=== PATIENT | male | born 1985 | race Caucasian/White ===

== ENCOUNTER 2017-07-03 06:55 | Emergency (ER) | payer MEDICAID ==
[2017-07-03 07:06] VITALS: TEMP 98.2
--- NOTE | 2017-07-03 07:33 | ED PDOC ---
HPI: General Adult Time Seen by Provider: 07/03/17 07:20 Chief Complaint (Nursing): Headache Chief Complaint (Provider): Left sided neck pain History Per: Patient History/Exam Limitations: no limitations Onset/Duration Of Symptoms: Days (x6 weeks) Current Symptoms Are (Timing): Still Present Additional Complaint(s): Heather Servin is a 32 year old male presenting to the ED for an evaluation of left sided neck pain radiating to his left shoulder occurring for 6 weeks prior to arrival. The patient states his pain worsens when turning his head side to side. He denies any trauma, weakness, or paresthesia. PMD: TBD Past Medical History Reviewed: Historical Data, Nursing Documentation, Vital Signs Vital Signs: Last Vital Signs Temp 98.2 F 07/03/17 07:04 Pulse 88 07/03/17 07:48 Resp 18 07/03/17 07:04 BP 185/124 H 07/03/17 07:48 Pulse Ox 97 07/03/17 07:35 - Medical History PMH: HTN (not on meds) - Family History Family History: States: Hypertension - Social History Current smoker - smoking cessation education provided: No Ex-Smoker (has not smoked in the last 12 months): Yes Alcohol: Social Drugs: Denies - Home Medications Home Medications: Ambulatory Orders Medication Instructions Recorded Cephalexin [Keflex] 500 mg PO Q6 #28 cap 03/21/14 Prednisone 50 mg PO DAILY #6 tab 03/27/14 DiphenhydrAMINE [Benadryl] 50 mg PO Q4 PRN #30 cap 04/01/14 Prednisone 20 mg PO BID #10 tab 04/01/14 Cyclobenzaprine [Cyclobenzaprine 10 mg PO TID #10 tab 07/03/17 HCl] Naproxen [Naprosyn] 500 mg PO Q12H #20 tab 07/03/17 amLODIPine [Norvasc] 10 mg PO DAILY #30 tab 07/03/17 - Allergies Allergies/Adverse Reactions: Allergies Allergy/AdvReac Type Severity Reaction Status Date / Time No Known Allergies Allergy Verified 03/21/14 16:16 Review of Systems ROS Statement: Except As Marked, All Systems Reviewed And Found Negative Musculoskeletal: Positive for: Neck Pain (left sided), Shoulder Pain (left shoulder) Neurological: Negative for: Weakness, Other (no paresthesia) Physical Exam - Reviewed Nursing Documentation Reviewed: Yes Vital Signs Reviewed: Yes - Physical Exam Appears: Positive for: Non-toxic, No Acute Distress Head Exam: Positive for: ATRAUMATIC, NORMOCEPHALIC Skin: Positive for: Normal Color, Warm, Dry Eye Exam: Positive for: Normal appearance, EOMI ENT: Positive for: Normal ENT Inspection Neck: Positive for: Supple. Negative for: Normal (no midline tenderness or deformity; left paracervical spasms) Cardiovascular/Chest: Positive for: Regular Rate, Rhythm, Chest Non Tender Respiratory: Positive for: Normal Breath Sounds. Negative for: Respiratory Distress Back: Positive for: Normal Inspection Extremity: Positive for: Normal ROM. Negative for: Deformity Neurologic/Psych: Positive for: Alert, Oriented (x3). Negative for: Motor/ Sensory Deficits - ECG O2 Sat by Pulse Oximetry: 97 (RA) Pulse Ox Interpretation: Normal Medical Decision Making Medical Decision Making: Time: 07:20 Impression: Left paracervical spasms Plan: * [RAD] Cervical Spine AP & Lateral * Reevaluation Scribe Attestation: Documented by Brit Grace, acting as a scribe for Kristopher Mahan MD. Provider Scribe Attestation: All medical record entries made by the Scribe were at my direction and personally dictated by me. I have reviewed the chart and agree that the record accurately reflects my personal performance of the history, physical exam, medical decision making, and the department course for this patient. I have also personally directed, reviewed, and agree with the discharge instructions and disposition. Disposition - Clinical Impression Clinical Impression: Cervical radiculopathy - Patient ED Disposition Is Patient to be Admitted: No Counseled Patient/Family Regarding: Studies Performed, Diagnosis, Need For Followup, Rx Given - Disposition Referrals: Jonnathan Nur III, MD [Staff Provider] - Disposition: Routine/Home Disposition Time: 08:07 Condition: FAIR Prescriptions: amLODIPine [Norvasc] 10 mg PO DAILY #30 tab Cyclobenzaprine [Cyclobenzaprine HCl] 10 mg PO TID #10 tab Naproxen [Naprosyn] 500 mg PO Q12H #20 tab Instructions: Cervical Radiculopathy (ED), Hypertension (ED) Forms: [employer]r (Romanian)
[2017-07-03 09:12] VITALS: BP 151/111; PULSE 90; RESP 16; O2SAT 98
--- NOTE | 2017-07-03 11:59 | RAD ---
PROCEDURE: Cervical spine dated 07/03/2017. AP lateral swimmer's and open-mouth views of the cervical spine performed. Note that the examination is limited the due to obscuration of the distal tip of the odontoid by overlying occiput in the open-mouth projection. HISTORY: Pain. COMPARISON: None. FINDINGS: BONES: No evidence of acute fracture so far as can be seen not withstanding partial obscuration of the distal tip of the odontoid. The osseous structures appear intact. Straightening of the normal cervical lordosis however vertebral bodies otherwise exhibit normal alignment. Facets normally aligned. DISC SPACES: Disc space heights relatively maintained. No significant degenerative spondylosis. SOFT TISSUES: Normal. No prevertebral soft tissue swelling. OTHER FINDINGS: None. IMPRESSION: No evidence of acute wedge or compression fracture deformities not withstanding the aforementioned limitation. Consider followup CT scan or MRI of the cervical spine if further evaluation is required. Straightening of the normal cervical lordosis could be due to patient positioning versus underlying muscle spasm
== END 2017-07-03 09:20 | disposition home or self-care (01) ==
LOC: H.ER 06:55
DX: M54.12 Radiculopathy, cervical region (principal); Z87.891 Personal history of nicotine dependence; I10 Essential (primary) hypertension